=== PATIENT | female | born 1940 | race Caucasian/White ===

== ENCOUNTER 2020-08-09 01:07 | Inpatient (IN) | payer MEDICARE ==
[2020-08-09] MEDS ORDERED: Morphine 4 MG/ML VIAL ONE (01:48)
[2020-08-09] MEDS ORDERED: Acetaminophen 325 MG TAB PO PRN (03:12)
[2020-08-09] MEDS ORDERED: Ondansetron ODT 4 MG TAB PO PRN (03:12)
[2020-08-09] MEDS ORDERED: Ondansetron PF 4 MG/2 ML Vial IVP PRN (03:12)
[2020-08-09 03:45] VITALS: BMI 19.3
[2020-08-09] MEDS ORDERED: Morphine 2 MG/ML VIAL SLOW IVP SCH ×2 (04:45→17:15)
[2020-08-09 05:49] LABS: #Lymphocytes 1.1 thou/uL (1.20-3.40); #Monocytes 0.5 thou/uL (0.11-0.59); #Neutrophils 7.7 thou/uL (1.40-6.50); %Basophils 0.1 % (0.0-1.0); %Eosinophils 0.2 % (0.0-10.0); %Lymphocytes 11.4 % (21.0-51.0); %Monocytes 5.7 % (0.0-10.0); %Neutrophils 82.7 % (42.0-75.0); Hemoglobin 12.9 g/dL (12.0-16.0); Mean Corpuscular HGB CONC 31.6 g/dL (32.0-36.0); Mean Corpuscular Hemoglobin 29.6 pg (27.0-31.0); Mean Corpuscular Volume 93.4 fL (78.0-98.0); Mean Platelet Volume 7.6 fL (7.4-10.4); Platelet Count 188 thou/uL (130-400); RBC Distribution Width 12.4 % (11.5-14.5); Red Blood Cell (RBC) Count 4.36 mill/uL (4.20-5.40); White Blood Cell (WBC) Count 9.3 thou/uL (4.8-10.8)
[2020-08-09] MEDS ORDERED: Piperacillin/Tazobactam 4.5 GM in Sodium Chloride 0.9% 100 ML IVPB SCH (06:00)
[2020-08-09 06:09] LABS: Anion Gap 17 mmol/L (10-20); BUN (Urea Nitrogen) 22 mg/dL (9.8-20.1); Calc. Creatinine Clearance 41 mL/min (70-130); Carbon Dioxide 19 mmol/L (23-31); Chloride 106 mmol/L (98-107); Glucose 118 mg/dL (83-110); Potassium 3.8 mmol/L (3.5-5.1); Sodium 138 mmol/L (136-145)
[2020-08-09] MEDS: Piperacillin/Tazobactam 4.5 GM in Sodium Chloride 0.9% 100 ML IVPB SCH ×3 (06:10→18:09)
[2020-08-09] MEDS ORDERED: Enoxaparin Sodium 40 MG/0.4 ML SYRINGE SC SCH (09:00)
[2020-08-09 10:56] LABS: ALT (SGPT) 14 U/L (8-55); AST (SGOT) 30 U/L (5-34); Albumin 3.8 g/dL (3.4-4.8); Alkaline Phosphatase 56 U/L (40-110); Bilirubin, Direct 0.2 mg/dL (0.1-0.3); Bilirubin, Total 0.5 mg/dL (0.2-1.2); Protein, Total 6.8 g/dL (5.8-8.1)
[2020-08-09] MEDS: Sodium Chloride 0.9% 1,000 ML IV SCH ×3 (13:36→23:56)
[2020-08-10] MEDS: Piperacillin/Tazobactam 4.5 GM in Sodium Chloride 0.9% 100 ML IVPB SCH ×3 (01:00→18:16)
[2020-08-10] MEDS: Levothyroxine Sodium 50 MCG TAB PO SCH (06:04)
[2020-08-10] MEDS ORDERED: Potassium Chloride 20 MEQ TAB PO SCH (08:00)
[2020-08-10 09:00] LABS: #Lymphocytes 0.9 thou/uL (1.20-3.40); #Monocytes 0.5 thou/uL (0.11-0.59); #Neutrophils 6.5 thou/uL (1.40-6.50); %Basophils 0.4 % (0.0-1.0); %Eosinophils 0.4 % (0.0-10.0); %Lymphocytes 11.4 % (21.0-51.0); %Monocytes 5.8 % (0.0-10.0); Hemoglobin 13.1 g/dL (12.0-16.0); Mean Corpuscular HGB CONC 32.5 g/dL (32.0-36.0); Mean Corpuscular Hemoglobin 30.3 pg (27.0-31.0); Mean Platelet Volume 7.7 fL (7.4-10.4); Platelet Count 166 thou/uL (130-400); RBC Distribution Width 12.3 % (11.5-14.5); Red Blood Cell (RBC) Count 4.33 mill/uL (4.20-5.40); White Blood Cell (WBC) Count 7.9 thou/uL (4.8-10.8)
[2020-08-10] MEDS ORDERED: Lisinopril/Hydrochlorothiazide 20 mg/12.5 mg Tablet PO SCH (09:00)
[2020-08-10] MEDS ORDERED: cefOXitin 2 GM in Sodium Chloride 0.9% 100 ML IVPB SCH (09:15)
[2020-08-10 09:18] LABS: ALT (SGPT) 24 U/L (8-55); AST (SGOT) 43 U/L (5-34); Albumin 3.3 g/dL (3.4-4.8); Alkaline Phosphatase 60 U/L (40-110); Anion Gap 17 mmol/L (10-20); BUN (Urea Nitrogen) 15 mg/dL (9.8-20.1); Bilirubin, Total 0.8 mg/dL (0.2-1.2); Calc. Creatinine Clearance 46 mL/min (70-130); Calcium 8.2 mg/dL (7.8-10.44); Carbon Dioxide 20 mmol/L (23-31); Chloride 107 mmol/L (98-107); Globulin 2.7 g/dL (2.4-3.5); Glucose 74 mg/dL (83-110); Potassium 3.5 mmol/L (3.5-5.1); Sodium 140 mmol/L (136-145)
[2020-08-10] MEDS: Saccharomyces boulardii 250 MG CAP PO SCH (09:32)
[2020-08-10] MEDS ORDERED: cefOXitin Sodium/Dextrose 2 GM/50 ML BAG ONE (11:08)
[2020-08-10] MEDS: Sodium Chloride 0.9% 1,000 ML IV SCH (11:45)
[2020-08-10] MEDS ORDERED: Fentanyl 100 MCG/2 ML VIAL ONE (13:14)
[2020-08-10] MEDS ORDERED: Lidocaine 1% PF 5 ML VIAL ONE (13:30)
[2020-08-10] MEDS ORDERED: PROPOFOL 200 MG/20 ML VIAL ONE (13:30)
[2020-08-10] MEDS ORDERED: Ondansetron PF 4 MG/2 ML Vial ONE (13:30)
[2020-08-10] MEDS ORDERED: Glycopyrrolate 0.2 MG/ML 5 ML SYRINGE ONE (13:30)
[2020-08-10] MEDS ORDERED: Rocuronium Bromide 10 MG/ML (10ML VIAL) ONE (13:30)
[2020-08-10] MEDS ORDERED: Bupivacaine 0.25% HCL 30 ML VIAL ONE (13:42)
[2020-08-10] MEDS ORDERED: Lidocaine 1% w/Epinephrine 1:100K 20 ML VIAL ONE (13:42)
[2020-08-10] MEDS ORDERED: SUGAMMADEX SODIUM 200 MG/2 ML VIAL ONE (14:20)
[2020-08-10] MEDS ORDERED: HYDROcodone/Acetaminophen 5/325 mg Tablet PO PRN ×2 (14:25)
[2020-08-10] MEDS ORDERED: Ondansetron HCl/PF 4 MG/2 ML Vial IVP PRN (14:42)
[2020-08-10] MEDS ORDERED: Promethazine HCl 25 MG/ML VIAL IM PRN (14:42)
[2020-08-10] MEDS ORDERED: Promethazine HCl 25 MG/ML VIAL IVPB PRN (14:42)
[2020-08-10] MEDS ORDERED: Enoxaparin Sodium 40 MG/0.4 ML SYRINGE SC SCH (21:00)
[2020-08-11] MEDS: Sodium Chloride 0.9% 1,000 ML IV SCH ×3 (01:27→12:44)
[2020-08-11] MEDS: Piperacillin/Tazobactam 4.5 GM in Sodium Chloride 0.9% 100 ML IVPB SCH (02:35)
[2020-08-11] MEDS: Levothyroxine Sodium 50 MCG TAB PO SCH (05:22)
[2020-08-11] MEDS: Saccharomyces boulardii 250 MG CAP PO SCH (07:58)
[2020-08-11] MEDS ORDERED: Potassium Chloride 20 MEQ TAB PO SCH (08:45)
[2020-08-11] MEDS ORDERED: Enoxaparin Sodium 40 MG/0.4 ML SYRINGE SC SCH (09:00)
[2020-08-11] MEDS ORDERED: Lisinopril/Hydrochlorothiazide 20 mg/12.5 mg Tablet PO SCH (09:00)
[2020-08-11 11:53] VITALS: BP 134/79; TEMP 97.6
== END 2020-08-11 13:30 | disposition home or self-care (01) | DRG 854 ==
LOC: ERS 01:07 → SURG A 01:57
PROVIDERS: ADMIT Student in an Organized Health Care Education/Training Program; ATTEND Internal Medicine
PROC: 0FT44ZZ Resection of Gallbladder, Percutaneous Endoscopic Approach (ICD-10-PCS; principal; 2020-08-10)
DX: A41.9 Sepsis, unspecified organism (principal); K81.0 Acute cholecystitis; E87.2 Acidosis; K44.9 Diaphragmatic hernia without obstruction or gangrene; E03.9 Hypothyroidism, unspecified; K57.30 Diverticulosis of large intestine without perforation or abscess without bleeding; I12.9 Hypertensive chronic kidney disease with stage 1 through stage 4 chronic kidney disease, or unspecified chronic kidney disease; M85.80 Other specified disorders of bone density and structure, unspecified site; N18.2 Chronic kidney disease, stage 2 (mild); E86.0 Dehydration; E16.2 Hypoglycemia, unspecified
CPT/HCPCS: 36415; 78226; 80048; 80053; 80076; 85025; 87070; 87205; 88304; 96374; A9537; J0694; J1650; J2270; J2405; J2543; J2704; J3010; J3490; S0020

== ENCOUNTER 2022-02-08 10:44 | Emergency (ER) | payer MEDICARE ==
[2022-02-08] MEDS ORDERED: Ondansetron PF 4 MG/2 ML Vial ONE (11:20)
[2022-02-08] MEDS ORDERED: Morphine 4 MG/ML VIAL ONE (11:21)
[2022-02-08 11:40] LABS: #Eosinphils 0.1 thou/uL (0.0-0.7); #Lymphocytes 1.3 thou/uL (1.20-3.40); #Monocytes 0.4 thou/uL (0.11-0.59); #Neutrophils 4.2 thou/uL (1.40-6.50); %Basophils 0.6 % (0.0-1.0); %Eosinophils 1.3 % (0.0-10.0); %Lymphocytes 21.3 % (21.0-51.0); %Monocytes 7.2 % (0.0-10.0); %Neutrophils 69.6 % (42.0-75.0); Hemoglobin 13.7 g/dL (12.0-16.0); Mean Corpuscular HGB CONC 33.1 g/dL (32.0-36.0); Mean Corpuscular Hemoglobin 30.9 pg (27.0-31.0); Mean Corpuscular Volume 93.6 fl (78.0-98.0); Mean Platelet Volume 7.8 fL (7.4-10.4); Platelet Count 189 10x3/uL (130-400); RBC Distribution Width 12.1 % (11.5-14.5); Red Blood Cell (RBC) Count 4.42 mill/uL (4.20-5.40)
[2022-02-08 11:41] LABS: Bacteria/HPF None Seen HPF (None Seen); Bilirubin Negative (Negative); Blood, Urine 2+ (Negative); Clarity Clear (Clear); Glucose, Urine (Dipstick) Normal (Negative); Ketone, Urine 40 mg/dL (Negative); Leukocyte Negative Leu/uL (Negative); Nitrite Negative (Negative); Protein, Urine (Dipstick) Negative (Neg-Trace); Specific Gravity, Urine 1.022 (1.002-1.036); Squamous Epithelial 0-3 HPF (0-3); Urobilinogen Normal mg/dL (Less than 2); WBC/HPF 0-3 HPF (0-3)
[2022-02-08 12:13] LABS: ALT (SGPT) 16 U/L (8-55); AST (SGOT) 40 U/L (5-34); Albumin 4.2 g/dL (3.4-4.8); Alkaline Phosphatase 66 U/L (40-110); Anion Gap 17 mmol/L (10-20); BUN (Urea Nitrogen) 23 mg/dL (9.8-20.1); Bilirubin, Total 0.6 mg/dL (0.2-1.2); CK (CPK) 88 U/L (29-168); Calc. Creatinine Clearance 0 mL/min (70-130); Calcium 10.1 mg/dL (7.8-10.44); Carbon Dioxide 23 mmol/L (23-31); Chloride 99 mmol/L (98-107); Estimated GFR 53; Globulin 3.6 g/dL (2.4-3.5); Glucose 91 mg/dL (83-110); Lipase 60 U/L (8-78); Potassium 4.4 mmol/L (3.5-5.1); Protein, Total 7.8 g/dL (5.8-8.1); Sodium 135 mmol/L (136-145)
[2022-02-08] MEDS ORDERED: Iopamidol-370 76% 500 ML 1 ML ONE (16:01)
== END 2022-02-08 13:02 | disposition home or self-care (01) ==
LOC: ERS 10:44
DX: R10.9 Unspecified abdominal pain (principal); I10 Essential (primary) hypertension
CPT/HCPCS: 36415; 74177; 80053; 81003; 81015; 82550; 83690; 84484; 85025; 93005; 96374; 96375; J2270; J2405; Q9967

== ENCOUNTER 2022-03-04 08:12 | Outpatient (CLI) | payer MEDICARE | END 2022-03-04 08:13 | disposition home or self-care (01) | LOC: CT 08:12 | PROVIDERS: ATTEND Internal Medicine Gastroenterology | DX: R10.13 Epigastric pain (principal); K46.9 Unspecified abdominal hernia without obstruction or gangrene; K44.9 Diaphragmatic hernia without obstruction or gangrene | CPT/HCPCS: 74177; 82565 ==

== ENCOUNTER 2022-03-28 11:37 | Outpatient (CLI) | payer MEDICARE ==
[2022-03-28 12:43] LABS: #Monocytes 0.3 10x3/uL (0.0-1.1); #Neutrophils 2.9 10x3/uL (1.5-8.4); %Basophils 0.5 % (0.0-2.0); %Eosinophils 0.5 % (0.0-6.0); %Lymphocytes 20.8 % (18.0-47.0); %Monocytes 6.3 % (0.0-10.0); %Neutrophils 71.6 % (40.0-75.0); Hemoglobin 12.6 g/dL (12.0-15.5); Mean Corpuscular HGB CONC 33.2 g/dL (32.0-36.0); Mean Corpuscular Hemoglobin 30.3 pg (27.0-33.0); Mean Corpuscular Volume 91.3 fl (81.6-98.3); Platelet Count 211 10x3/uL (150-450); RBC Distribution Width 14.6 % (11.5-14.5); Red Blood Cell (RBC) Count 4.16 10x6/uL (3.90-5.03)
[2022-03-28 12:57] LABS: Anion Gap 15 mmol/L (10-20); BUN (Urea Nitrogen) 28 mg/dL (9.8-20.1); Calc. Creatinine Clearance 0 mL/min (70-130); Carbon Dioxide 26 mmol/L (23-31); Chloride 104 mmol/L (98-107); Potassium 4.1 mmol/L (3.5-5.1); Sodium 141 mmol/L (136-145)
[2022-03-28 12:58] LABS: ALT (SGPT) 15 U/L (8-55); AST (SGOT) 24 U/L (5-34); Albumin 4.1 g/dL (3.4-4.8); Alkaline Phosphatase 77 U/L (40-110); Bilirubin, Total 0.4 mg/dL (0.2-1.2); Calcium 9.9 mg/dL (7.8-10.44); Estimated GFR 39; Globulin 2.6 g/dL (2.4-3.5); Glucose 120 mg/dL (83-110); Protein, Total 6.7 g/dL (5.8-8.1)
== END 2022-03-28 11:38 | disposition home or self-care (01) ==
LOC: LABBT 11:37
PROVIDERS: ATTEND Surgery
DX: Z01.812 Encounter for preprocedural laboratory examination (principal); K44.9 Diaphragmatic hernia without obstruction or gangrene
CPT/HCPCS: 80053; 85025

== ENCOUNTER 2022-04-06 05:44 | Inpatient (IN) | payer OTHER, MEDICARE ==
[2022-04-04 10:11] VITALS: BMI 18.1
[2022-04-06] MEDS ORDERED: Bupivacaine/Epinephrine 0.25% 30 ML VIAL ONE (06:39)
[2022-04-06] MEDS ORDERED: fentaNYL PF 100 MCG/2 ML SYRINGE ONE (06:53)
[2022-04-06] MEDS ORDERED: CEFAZOLIN 2 GM VIAL ONE (07:25)
[2022-04-06] MEDS ORDERED: Sodium Chloride 0.9% 100 ML ONE (07:25)
[2022-04-06] MEDS ORDERED: Ondansetron PF 4 MG/2 ML Vial ONE (07:43)
[2022-04-06] MEDS ORDERED: Dexamethasone 20 MG/5 ML VIAL ONE (07:43)
[2022-04-06] MEDS ORDERED: PROPOFOL 200 MG/20 ML VIAL ONE (07:43)
[2022-04-06] MEDS ORDERED: NEOSTIGMINE 3 MG/3 ML SYR 3 MG/3 ML SYRINGE ONE (07:43)
[2022-04-06] MEDS ORDERED: Rocuronium Bromide 10 MG/ML (10ML VIAL) ONE (07:43)
[2022-04-06] MEDS ORDERED: PHENYLEPHRINE-NS 100 MCG/ML 10 ML SYRINGE ONE (07:43)
[2022-04-06] MEDS ORDERED: Esmolol 100 MG/10 ML VIAL ONE (07:43)
[2022-04-06] MEDS ORDERED: Glycopyrrolate 0.2 MG/ML 5 ML SYRINGE ONE (07:43)
[2022-04-06] MEDS ORDERED: Lidocaine 1% PF 5 ML VIAL ONE (07:43)
[2022-04-06] MEDS ORDERED: ePHEDrine 50 MG/ML VIAL ONE (07:43)
[2022-04-06] MEDS ORDERED: Dextrose 50% Abboject 50 ML SYRINGE SLOW IVP PRN (09:36)
[2022-04-06] MEDS ORDERED: hydrALAZINE 20 MG/ML VIAL SLOW IVP PRN (09:36)
[2022-04-06] MEDS ORDERED: Promethazine HCl 25 MG/ML VIAL IM PRN ×2 (09:36→09:38)
[2022-04-06] MEDS ORDERED: Morphine 4 MG/ML VIAL SLOW IVP PRN (09:36)
[2022-04-06] MEDS ORDERED: Hydrocodone-Acetamin 15 ML UDCUP PO PRN (09:36)
[2022-04-06] MEDS ORDERED: Ipratropium/Albuterol 3 ML NEB NEB PRN (09:36)
[2022-04-06] MEDS ORDERED: Morphine 2 MG/ML VIAL SLOW IVP PRN (09:36)
[2022-04-06] MEDS ORDERED: diphenhydrAMINE 50 MG/ML VIAL IVP PRN (09:36)
[2022-04-06] MEDS ORDERED: Dextrose 5% in Water 1,000 ML IV PRN (09:36)
[2022-04-06] MEDS ORDERED: Ondansetron PF 4 MG/2 ML Vial IVP PRN (09:36)
[2022-04-06] MEDS ORDERED: Ondansetron HCl/PF 4 MG/2 ML Vial IVP PRN (09:38)
[2022-04-06] MEDS ORDERED: Fentanyl 100 MCG/2 ML VIAL ONE ×2 (09:55→11:20)
[2022-04-06] MEDS ORDERED: Labetalol HCl 100 MG/20 ML VIAL ONE (10:49)
[2022-04-06] MEDS ORDERED: hydrALAZINE 20 MG/ML VIAL ONE (13:43)
[2022-04-06 15:43] LABS: Calcium 9.2 mg/dL (7.8-10.44); Magnesium 1.4 mg/dL (1.6-2.6); Phosphorus 3.9 mg/dL (2.3-4.7)
[2022-04-06] MEDS: D5 1/2 NS w/20 mEq KCL 1,000 ML IV SCH ×2 (18:27)
[2022-04-06] MEDS: CEFAZOLIN 2 GM in Sodium Chloride 0.9% 100 ML IVPB SCH ×2 (18:40→23:12)
[2022-04-06 19:21] LABS: SARS-CoV-2 NAA Rapid Test Not Detected (NotDetected)
[2022-04-07] MEDS: D5 1/2 NS w/20 mEq KCL 1,000 ML IV SCH ×2 (02:37→09:45)
[2022-04-07 04:49] LABS: #Lymphocytes 1.2 thou/uL (1.20-3.40); #Monocytes 0.7 thou/uL (0.11-0.59); #Neutrophils 6.9 thou/uL (1.40-6.50); %Basophils 0.1 % (0.0-1.0); %Eosinophils 0.2 % (0.0-10.0); %Lymphocytes 13.5 % (21.0-51.0); %Monocytes 7.4 % (0.0-10.0); %Neutrophils 78.7 % (42.0-75.0); Hemoglobin 11.3 g/dL (12.0-16.0); Mean Corpuscular HGB CONC 33.4 g/dL (32.0-36.0); Mean Corpuscular Hemoglobin 31.4 pg (27.0-31.0); Mean Corpuscular Volume 93.9 fl (78.0-98.0); Mean Platelet Volume 7.7 fL (7.4-10.4); Platelet Count 162 10x3/uL (130-400); Red Blood Cell (RBC) Count 3.61 mill/uL (4.20-5.40); White Blood Cell (WBC) Count 8.8 10x3/uL (4.8-10.8)
[2022-04-07 05:11] LABS: Anion Gap 11 mmol/L (10-20); BUN (Urea Nitrogen) 16 mg/dL (9.8-20.1); Calc. Creatinine Clearance 31 mL/min (70-130); Calcium 8.6 mg/dL (7.8-10.44); Carbon Dioxide 26 mmol/L (23-31); Chloride 106 mmol/L (98-107); Estimated GFR 50; Glucose 127 mg/dL (83-110); Sodium 139 mmol/L (136-145)
[2022-04-07] MEDS ORDERED: Pantoprazole 40 MG VIAL IVP SCH (09:00)
[2022-04-07 12:37] VITALS: BP 167/74; TEMP 97.3
== END 2022-04-07 15:15 | disposition home or self-care (01) | DRG 327 ==
LOC: SDC 05:44 → 2NO 15:44
PROVIDERS: ADMIT Internal Medicine Cardiovascular Disease; ATTEND Surgery
PROC: 0DV44ZZ Restriction of Esophagogastric Junction, Percutaneous Endoscopic Approach (ICD-10-PCS; principal; 2022-04-06)
PROC: 0BUT4JZ Supplement Diaphragm with Synthetic Substitute, Percutaneous Endoscopic Approach (ICD-10-PCS; 2022-04-06)
PROC: 8E0W4CZ Robotic Assisted Procedure of Trunk Region, Percutaneous Endoscopic Approach (ICD-10-PCS; 2022-04-06)
DX: K44.9 Diaphragmatic hernia without obstruction or gangrene (principal); I47.1 Supraventricular tachycardia; I97.191 Other postprocedural cardiac functional disturbances following other surgery; I10 Essential (primary) hypertension; E03.9 Hypothyroidism, unspecified; R13.10 Dysphagia, unspecified; M81.0 Age-related osteoporosis without current pathological fracture; Z79.899 Other long term (current) drug therapy; Z98.890 Other specified postprocedural states; Z90.49 Acquired absence of other specified parts of digestive tract; Z20.822 Contact with and (suspected) exposure to COVID-19
CPT/HCPCS: 36415; 74240; 80048; 82310; 83735; 84100; 85025; 93005; 93010; 93306; C1781; C9113; J0360; J1100; J1650; J2405; J2704; J3010; J3480; J3490; U0002